=== PATIENT | female | born 1980 | race Caucasian/White ===

== ENCOUNTER → 2018-08-15 | Outpatient (CLI) | payer SELFPAY ==
[~2018-08-15] MED LIST: AMI25 PO; ASP81 PO; ASPI-715 PO; BACDS PO; BISO1TAB91 PO; CYC10 PO; HYDR-855 PO; LOR1 PO; LORA-633 PO; LOVA20TA99 PO; MEPE50TA29 PO; NIA100 PO; NIA500 PO; NOR5/325 PO; PER PO; SIMV-44 PO; SIMV10TA96 PO; TOBROD OP; TRAM100T30 PO; WAR5 PO; WARF5TAB23 PO; WARF7.5T13 PO
[2018-08-15 16:32] LABS: INR 2.03
== END ==
LOC: LAB 15:59
PROVIDERS: ATTEND Nurse Practitioner Family
DX: Z51.81 Encounter for therapeutic drug level monitoring (principal); Z79.01 Long term (current) use of anticoagulants
CPT/HCPCS: 36415; 85610